=== PATIENT | male | born 1950 | race Asian ===

== ENCOUNTER 2019-12-31 13:21 | Emergency (ER) | payer MEDICARE, OTHER ==
[~2019-12-31] VITALS: Ht 177.8 cm; Wt 72.6 kg
--- NOTE | 2019-12-31 13:58 | NUR ---
ED Nurse Note: pt presents to ED with a growth on his R big toe onset 2 months ago. pt rates pain a 1/10, the skin is red and appears to be swollen. pt denies any trauma or injury to the area, just states that it is uncomfortable and would like for it to be evaluated
--- NOTE | 2019-12-31 14:25 | NUR ---
ED Nurse Note: photos of pt's foot taken and uploaded to pt chart per request by Dr. Brantley
--- NOTE | 2019-12-31 14:32 | Emergency Room Report ---
History of Present Illness General Chief Complaint: Lower Extremity Injury Source: Patient, Medical Record Present Illness HPI This patient presents for evaluation of a growth on his R. great toe. The patient has had this growth for a very long time. He states that recently he no ticed some change in the growth. He is here to get it further evaluated. He has never had it evaluated by a specialist such as a compliance representative dealer or even his primary care physician. He states that he is in a [facility] and [facility] facility and he has been seen at the medical office there. He states that it only gets dressed. He occasionally has pain. He denies recent illness. He denies fever chills. He denies nausea or vomiting. He denies new warmth or erythema. He has no other complaints. Allergies: Coded Allergies: No Known Allergies (Unverified , 12/31/19) COVID-19 Screening Contact w/high risk pt: Yes Experienced COVID-19 symptoms?: No COVID-19 Testing performed CLAIMS MANAGER: No Patient History Past Medical History: see triage record, HTN Social History: Reports: smoking; Denies: alcohol use, drug use Reviewed Nursing Documentation: PMH: Agreed; PSxH: Agreed Nursing Documentation-PMH Hx Hypertension: Yes History Of Psychiatric Problem: Yes - schizophrenia Review of Systems All Other Systems: negative except mentioned in HPI Physical Exam Vital Signs Date Time Temp Pulse Resp B/P (MAP) Pulse Ox O2 Delivery O2 Flow Rate FiO2 12/31/19 13:25 97.5 102 18 100/66 (77) 95 Room Air Sp02 EP Interpretation: reviewed, normal General Appearance: no apparent distress, alert, GCS 15, non-toxic Head: normocephalic, atraumatic Eyes: bilateral eye normal inspection ENT: hearing grossly normal, no angioedema, normal voice Neck: normal inspection Respiratory: chest non-tender, no respiratory distress, no retraction, no accessory muscle use, speaking full sentences Rectal: deferred Musculoskeletal: back normal, normal range of motion, gait/station normal, other - See below in skin exam Neurologic: alert, motor strength/tone normal, oriented x3, responsive, speech normal Psychiatric: judgement/insight normal, memory normal, mood/affect normal, no s uicidal/homicidal ideation Skin: other - Plantar aspect of great toe with [id number] mass/tumor (see photogra ph in EMR) w/ vascular/hemagioma component. 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 This tumor needs to be resected surgically and biopsied. It has a hemangioma component to it. I educated the patient that he would need to see a compliance representative dealer for tumor removal and biopsy. Also a motion and time study teacher could manage this condition. The patient states that there is a compliance representative dealer from [facility] that visits the [facility] facility that he resides in. He states that he can follow on with a compliance representative dealer. Educated the patient on the importance of very close and rapid follow-up on this tumor. Although, it does appear to be slow- growing. Educated the patient that this could be malignant. There is no emergency medical condition that I can treat at this time. There is no evidence of overlying infection. Patient is instructed to follow-up closely with a compliance representative dealer or motion and time study teacher. The patient indicated understanding intention to do so. Last Vital Signs Date Time Temp Pulse Resp B/P (MAP) Pulse Ox O2 Delivery O2 Flow Rate FiO2 12/31/19 13:25 97.5 102 18 100/66 (77) 95 Room Air Disposition: HOME, SELF-CARE Condition: Stable Ivet Jarquin DO Dec 31, 2019 14:32
[2019-12-31 14:55] VITALS: BP 100/66
--- NOTE | 2019-12-31 14:55 | NUR ---
ER DISCHARGE NOTE: Patient is cleared to be discharged per ERMD, pt is aox4, on room air, with stable vital signs. pt was given dc and prescription instructions, pt was able to verbalize understanding, pt id band removed without complications. pt is able to ambulate with steady gait. pt took all belongings.
== END 2019-12-31 14:56 | disposition home or self-care (01) ==
LOC: EMR 14:30
DX: D49.2 Neoplasm of unspecified behavior of bone, soft tissue, and skin (principal); I10 Essential (primary) hypertension; D18.01 Hemangioma of skin and subcutaneous tissue; F20.9 Schizophrenia, unspecified; F17.200 Nicotine dependence, unspecified, uncomplicated
CPT/HCPCS: 99282